=== PATIENT | male | born 1980 | race African-American/Black ===

== ENCOUNTER 2017-08-05 12:38 | Emergency (ER) | payer MEDICAID, OTHER ==
[~2017-08-05] VITALS: Ht 175.3 cm; Wt 63.0 kg
[~2017-08-05 12:38] MED LIST: B50 PO; FOLI-43 PO; HYDR2TAB4 PO; HYDR500C18 PO; OXYC60TA7 PO; TEMA30CA PO
[2017-08-05 13:18] VITALS: BP 129/70
== END 2017-08-05 17:10 | disposition left against medical advice (07) ==
LOC: ER 15:18
DX: D57.00 Hb-SS disease with crisis, unspecified (principal); Z53.21 Procedure and treatment not carried out due to patient leaving prior to being seen by health care provider

== ENCOUNTER 2017-08-31 11:30 | Inpatient (IN) | payer MEDICAID ==
[~2017-08-31] VITALS: Ht 175.3 cm; Wt 62.6 kg
[2017-08-31] MEDS ORDERED: SODIUM CHLORIDE 0.9% 1,000 ML IV ONE (11:53)
[2017-08-31] MEDS ORDERED: ONDANSETRON HCL 4MG/2ML VIAL IV ONE (12:00)
[2017-08-31] MEDS ORDERED: MORPHINE SULFATE 4 MG/ML CPJ (NOT FOR IM USE) IV ONE (12:00)
[2017-08-31] MEDS ORDERED: DIPHENHYDRAMINE 50MG/ML VIAL IV ONE (12:45)
[2017-08-31 12:50] LABS: BASOPHILS % 1.1 % (0.0-2.0); EOSINOPHILS % 6.1 % (0.0-5.0); HEMATOCRIT. 21.7 % (42.0-52.0); HEMOGLOBIN. 7.8 g/dL (14.0-18.0); LYMPHOCYTES % 21.6 % (20.0-50.0); MEAN CORPUSCULAR HEMOGLOBIN 35.6 pg (28.0-32.0); MEAN CORPUSCULAR VOLUME 99.5 fL (80.0-94.0); MEAN PLATELET VOLUME 8.9 fl (7.4-10.4); MONOCYTES % 11.2 % (2.0-8.0); PLATELET 379 x1000/uL (130-400); RED BLOOD CELL COUNT 2.18 mill/uL (4.7-6.1); RED CELL DISTRIBUTION WIDTH 21.3 % (11.6-14.6)
[2017-08-31 13:02] LABS: CLARITY URINE CLEAR (CLEAR); COLOR URINE YELLOW (YELLOW); GLUCOSE URINE NEGATIVE (NEGATIVE); KETONES URINE NEGATIVE (NEGATIVE); LEUKOCYTE ESTERASE URINE NEGATIVE (NEGATIVE); NITRITE URINE NEGATIVE (NEGATIVE); OCCULT BLOOD URINE NEGATIVE (NEGATIVE); PH URINE 6.5 (4.5-8.0); PROTEIN URINE NEGATIVE (NEGATIVE); SPECIFIC GRAVITY URINE 1.013 (1.005-1.030)
[2017-08-31 13:07] LABS: INR 1.1; PROTHROMBIN TIME 11.8 sec (9.4-11.6)
[2017-08-31 13:08] LABS: CARBON DIOXIDE 25 mEq/L (21-32); CHLORIDE 112 mEq/L (98-107); ETHANOL BLOOD < 10 mg/dL; TROPONIN I < 0.02 ng/mL (0.00-0.04)
[2017-08-31 13:34] LABS: *AMPHETAMINES SCREEN URINE NEGATIVE (NEGATIVE); *BARBITURATES SCREEN URINE NEGATIVE (NEGATIVE); *BENZODIAZEPINES SCREEN URINE NEGATIVE (NEGATIVE); *COCAINE SCREEN URINE NEGATIVE (NEGATIVE); CANNABINOID URINE SCREEN PRESUMTIVE POSITIVE (NEGATIVE); METHADONE URINE SCREEN NEGATIVE (NEGATIVE); OPIATES URINE SCREEN PRESUMTIVE POSITIVE (NEGATIVE); PHENCYCLIDINE URINE SCREEN NEGATIVE (NEGATIVE)
[2017-08-31] MEDS ORDERED: HYDROMORPHONE HCL/PF 2MG/ML CPJ IV ONE (15:00)
[2017-08-31 17:27] VITALS: BP 104/50
[2017-08-31] MEDS ORDERED: CHOL100046 PO (17:42)
[2017-08-31] MEDS ORDERED: ALPR1TAB PO (17:43)
[2017-08-31] MEDS ORDERED: ALBU18HF2 IH (17:44)
[2017-08-31 18:00] VITALS: BP 104/50
[2017-08-31] MEDS: SODIUM CHLORIDE 0.9% 1,000 ML IV SCH (18:56)
[2017-08-31] MEDS: HYDROMORPHONE HCL/PF 2MG/ML CPJ IV PRN ×2 (18:58→23:06)
[2017-08-31] MEDS: DIPHENHYDRAMINE 50MG/ML VIAL IV PRN ×2 (19:12→23:24)
[2017-08-31 20:00] VITALS: BP 132/66
[2017-09-01] VITALS: BP 112/64
[2017-09-01] MEDS: HYDROMORPHONE HCL/PF 2MG/ML CPJ IV PRN ×9 (01:23→21:44)
[2017-09-01] MEDS: TEMAZEPAM 15MG CAPSULE PO PRN (02:12)
[2017-09-01] MEDS: DIPHENHYDRAMINE 50MG/ML VIAL IV PRN ×5 (03:32→21:43)
[2017-09-01 04:00] VITALS: BP 102/59
[2017-09-01] MEDS: SODIUM CHLORIDE 0.9% 1,000 ML IV SCH ×2 (05:18→15:40)
[2017-09-01 07:03] LABS: BASOPHILS % 1.4 % (0.0-2.0); LYMPHOCYTES % 27.3 % (20.0-50.0); MEAN CORPUSCULAR HEMOGLOBIN 35.2 pg (28.0-32.0); MEAN CORPUSCULAR VOLUME 100.6 fL (80.0-94.0); MEAN PLATELET VOLUME 9.3 fl (7.4-10.4); MONOCYTES % 12.6 % (2.0-8.0); NEUTROPHILS % 50.7 % (40.0-76.0); PLATELET 338 x1000/uL (130-400); RED BLOOD CELL COUNT 1.98 mill/uL (4.7-6.1); RED CELL DISTRIBUTION WIDTH 19.9 % (11.6-14.6)
[2017-09-01 07:09] LABS: HEMATOCRIT. 19.9 % (42.0-52.0)
[2017-09-01 07:57] LABS: CARBON DIOXIDE 25 mEq/L (21-32); CHLORIDE 110 mEq/L (98-107); CREATINE KINASE 49 IU/L (39-308); CREATINE KINASE MB FRACTION < 0.5 ng/mL (0.5-3.6); TROPONIN I < 0.02 ng/mL (0.00-0.04)
[2017-09-01 08:00] VITALS: BP 104/55
[2017-09-01] MEDS: HYDROXYUREA 500MG CAPSULE PO SCH (08:13)
[2017-09-01] MEDS: FOLIC ACID 1MG TABLET PO SCH (08:13)
[2017-09-01] MEDS ORDERED: ALBUTEROL 6.7GM HFA INHALER ORI SCH (09:00)
[2017-09-01] MEDS: ONDANSETRON HCL 4MG/2ML VIAL IV PRN (10:32)
[2017-09-01 12:00] VITALS: BP 113/68
[2017-09-01] MEDS: ALBUTEROL (0.083%) 2.5MG/3ML NEB HHN SCH ×2 (14:42→20:39)
[2017-09-01 15:37] VITALS: BP 121/64
[2017-09-01 20:14] VITALS: BP 117/67
[2017-09-01] MEDS: CEFEPIME 1,000 MG in DEXTROSE 5% WATER 50 ML IV SCH (21:44)
[2017-09-02] VITALS (7 sets, daily range): BP systolic 113–138; BP diastolic 46–86
[2017-09-02] MEDS: ALBUTEROL (0.083%) 2.5MG/3ML NEB HHN SCH ×4 (00:51→20:45)
[2017-09-02] MEDS: HYDROMORPHONE HCL/PF 2MG/ML CPJ IV PRN ×9 (00:56→22:11)
[2017-09-02] MEDS: TEMAZEPAM 15MG CAPSULE PO PRN (00:56)
[2017-09-02] MEDS ORDERED: VANCOMYCIN 1 G PREMIX 200 ML IV NR (01:00)
[2017-09-02] MEDS: ONDANSETRON HCL 4MG/2ML VIAL IV PRN (01:17)
[2017-09-02] MEDS: DIPHENHYDRAMINE 50MG/ML VIAL IV PRN ×4 (03:05→20:04)
[2017-09-02] MEDS: SODIUM CHLORIDE 0.9% 1,000 ML IV SCH ×3 (05:34→19:30)
[2017-09-02 07:47] LABS: BASOPHILS % 0.7 % (0.0-2.0); EOSINOPHILS % 8.1 % (0.0-5.0); HEMOGLOBIN. 7.1 g/dL (14.0-18.0); LYMPHOCYTES % 34.3 % (20.0-50.0); MEAN CORPUSCULAR HEMOGLOBIN 35.4 pg (28.0-32.0); MEAN CORPUSCULAR VOLUME 100.6 fL (80.0-94.0); MEAN PLATELET VOLUME 9.6 fl (7.4-10.4); MONOCYTES % 13.9 % (2.0-8.0); PLATELET 298 x1000/uL (130-400); RED CELL DISTRIBUTION WIDTH 19.2 % (11.6-14.6)
[2017-09-02 07:56] LABS: HEMATOCRIT. 20.2 % (42.0-52.0)
[2017-09-02] MEDS: CEFEPIME 1,000 MG in DEXTROSE 5% WATER 50 ML IV SCH ×2 (08:15→21:41)
[2017-09-02] MEDS: FOLIC ACID 1MG TABLET PO SCH (08:15)
[2017-09-02] MEDS: ALPRAZOLAM 0.5 MG TABLET PO PRN ×2 (08:15→22:05)
[2017-09-02] MEDS: HYDROXYUREA 500MG CAPSULE PO SCH (08:15)
[2017-09-02 08:21] LABS: CARBON DIOXIDE 25 mEq/L (21-32); CHLORIDE 112 mEq/L (98-107)
[2017-09-02 08:24] LABS: TOTAL IRON BINDING CAPACITY 161 ug/dL (250-450)
[2017-09-02] MEDS: VANCOMYCIN 1250MG in DEXTROSE 5% WATER 250ML IV SCH ×2 (10:23→18:34)
[2017-09-03] VITALS (9 sets, daily range): BP systolic 110–135; BP diastolic 48–82
[2017-09-03] MEDS: TEMAZEPAM 15MG CAPSULE PO PRN ×2 (00:04→23:58)
[2017-09-03] MEDS: DIPHENHYDRAMINE 50MG/ML VIAL IV PRN ×5 (00:14→22:31)
[2017-09-03] MEDS: HYDROMORPHONE HCL/PF 2MG/ML CPJ IV PRN ×8 (00:18→22:32)
[2017-09-03] MEDS: ALBUTEROL (0.083%) 2.5MG/3ML NEB HHN SCH ×4 (02:14→20:22)
[2017-09-03] MEDS: VANCOMYCIN 1250MG in DEXTROSE 5% WATER 250ML IV SCH ×3 (03:38→21:13)
[2017-09-03 07:09] LABS: CARBON DIOXIDE 26 mEq/L (21-32); CHLORIDE 111 mEq/L (98-107)
[2017-09-03 07:33] LABS: BASOPHILS % 0.9 % (0.0-2.0); EOSINOPHILS % 8.9 % (0.0-5.0); LYMPHOCYTES % 32.4 % (20.0-50.0); MEAN CORPUSCULAR HEMOGLOBIN 34.5 pg (28.0-32.0); MEAN CORPUSCULAR VOLUME 99.6 fL (80.0-94.0); MEAN PLATELET VOLUME 9.3 fl (7.4-10.4); MONOCYTES % 14.5 % (2.0-8.0); NEUTROPHILS % 43.3 % (40.0-76.0); PLATELET 292 x1000/uL (130-400); RED BLOOD CELL COUNT 1.98 mill/uL (4.7-6.1); RED CELL DISTRIBUTION WIDTH 19.5 % (11.6-14.6)
[2017-09-03 07:58] LABS: HEMOGLOBIN. 6.8 g/dL (14.0-18.0)
[2017-09-03 07:59] LABS: HEMATOCRIT. 19.7 % (42.0-52.0)
[2017-09-03] MEDS: FOLIC ACID 1MG TABLET PO SCH (08:40)
[2017-09-03] MEDS: CEFEPIME 1,000 MG in DEXTROSE 5% WATER 50 ML IV SCH ×2 (08:41→20:18)
[2017-09-03] MEDS: HYDROXYUREA 500MG CAPSULE PO SCH (08:41)
[2017-09-03] MEDS ORDERED: DIPHENHYDRAMINE 50MG CAPSULE PO SCH (11:30)
[2017-09-03] MEDS ORDERED: DOCUSATE SODIUM 100MG CAPSULE PO SCH (11:30)
[2017-09-03] MEDS ORDERED: ACETAMINOPHEN 325MG TABLET PO SCH ×2 (11:30→23:15)
[2017-09-03] MEDS: ALPRAZOLAM 0.5 MG TABLET PO PRN (21:25)
[2017-09-04] VITALS (10 sets, daily range): BP systolic 111–149; BP diastolic 54–81
[2017-09-04] MEDS: ALBUTEROL (0.083%) 2.5MG/3ML NEB HHN SCH ×3 (02:15→14:22)
[2017-09-04] MEDS: DIPHENHYDRAMINE 50MG/ML VIAL IV PRN ×5 (02:34→21:22)
[2017-09-04] MEDS: HYDROMORPHONE HCL/PF 2MG/ML CPJ IV PRN ×8 (02:35→20:41)
[2017-09-04] MEDS: SODIUM CHLORIDE 0.9% 1,000 ML IV SCH ×2 (03:50→11:53)
[2017-09-04] MEDS: ONDANSETRON HCL 4MG/2ML VIAL IV PRN (06:56)
[2017-09-04 07:15] LABS: HEMATOCRIT 24.1 % (42.0-52.0); HEMOGLOBIN 8.6 g/dL (14.0-18.0)
[2017-09-04] MEDS: CEFEPIME 1,000 MG in DEXTROSE 5% WATER 50 ML IV SCH ×2 (08:16→20:41)
[2017-09-04] MEDS: HYDROXYUREA 500MG CAPSULE PO SCH (08:16)
[2017-09-04] MEDS: FOLIC ACID 1MG TABLET PO SCH (08:16)
[2017-09-04] MEDS: ALPRAZOLAM 0.5 MG TABLET PO PRN ×2 (08:19→18:26)
[2017-09-04] MEDS: VANCOMYCIN 1250MG in DEXTROSE 5% WATER 250ML IV SCH ×2 (09:19→21:22)
[2017-09-05] MEDS ORDERED: CHOLECALCIFEROL (D3) 1000 UNIT TABLET PO SCH (09:00)
== END 2017-09-04 23:30 | disposition home health service (06) | DRG 206 ==
LOC: ER 13:51 → EDBEDREQ 13:59 → ENRESERV 15:00 → 8WST 17:50
PROVIDERS: ADMIT Internal Medicine; ATTEND Internal Medicine
PROC: 30233N1 Transfusion of Nonautologous Red Blood Cells into Peripheral Vein, Percutaneous Approach (ICD-10-PCS; principal; 2017-09-03)
DX: T82.7XXA Infection and inflammatory reaction due to other cardiac and vascular devices, implants and grafts, initial encounter (principal); A41.89 Other specified sepsis; D57.00 Hb-SS disease with crisis, unspecified; F12.90 Cannabis use, unspecified, uncomplicated; J45.909 Unspecified asthma, uncomplicated; M47.9 Spondylosis, unspecified; W06.XXXA Fall from bed, initial encounter; Z88.8 Allergy status to other drugs, medicaments and biological substances; Z79.899 Other long term (current) drug therapy; Z79.1 Long term (current) use of non-steroidal anti-inflammatories (NSAID); Z90.49 Acquired absence of other specified parts of digestive tract
CPT/HCPCS: 36415; 71010; 72148; 80048; 80053; 80202; 80305; 81001; 82550; 82553; 82728; 83540; 83550; 83605; 83690; 84484; 85014; 85018; 85025; 85044; 85610; 86850; 86900; 86920; 87040; 87086; 93005; 94640; 94664; 96361; 96374; 96375; 97162; 99285; G0482; J0692; J1170; J1200; J2270; J2405; J3370; J7030; J7040; J7050; J7060; J7611; P9016

== ENCOUNTER 2017-09-10 19:59 | Inpatient (IN) | payer MEDICAID ==
[~2017-09-10] VITALS: Ht 160 cm; Wt 65.8 kg
[~2017-09-10 19:59] MED LIST changes: +ALBU18HF2 IH; +ALPR1TAB PO; +CHOL100046 PO
[2017-09-10] MEDS ORDERED: MORPHINE SULFATE 10 MG/ML CPJ IV ONE (22:15)
[2017-09-10] MEDS ORDERED: DIPHENHYDRAMINE 50MG/ML VIAL IV ONE (22:45)
[2017-09-10 23:04] LABS: MEAN CORPUSCULAR HEMOGLOBIN 34.6 pg (28.0-32.0); MEAN CORPUSCULAR VOLUME 97.4 fL (80.0-94.0); MEAN PLATELET VOLUME 8.4 fl (7.4-10.4); PLATELET 285 x1000/uL (130-400); RED BLOOD CELL COUNT 1.64 mill/uL (4.7-6.1); RED CELL DISTRIBUTION WIDTH 18.7 % (11.6-14.6)
[2017-09-10 23:07] LABS: HEMOGLOBIN. 5.7 g/dL (14.0-18.0)
[2017-09-10 23:09] LABS: CHLORIDE 111 mEq/L (98-107)
[2017-09-10 23:12] LABS: CARBON DIOXIDE 21 mEq/L (21-32)
[2017-09-10 23:18] LABS: PLATELET ESTIMATE NORMAL
[2017-09-11] VITALS (9 sets, daily range): BP systolic 100–134; BP diastolic 46–69
[2017-09-11] MEDS ORDERED: DIPHENHYDRAMINE 50MG CAPSULE PO PRN (02:00)
[2017-09-11] MEDS: HYDROMORPHONE HCL/PF 2MG/ML CPJ IV PRN ×7 (02:53→23:49)
[2017-09-11] MEDS ORDERED: DIPHENHYDRAMINE 50MG/ML VIAL IV PRN (05:15)
[2017-09-11] MEDS: DIPHENHYDRAMINE 50MG/ML VIAL IV PRN ×3 (10:40→21:12)
[2017-09-11] MEDS: SODIUM CHLORIDE 0.9% 1,000 ML IV SCH (16:22)
[2017-09-11 17:16] LABS: MEAN CORPUSCULAR HEMOGLOBIN 34.4 pg (28.0-32.0); MEAN CORPUSCULAR VOLUME 97.6 fL (80.0-94.0); PLATELET 297 x1000/uL (130-400); RED BLOOD CELL COUNT 1.99 mill/uL (4.7-6.1)
[2017-09-11 17:27] LABS: CLARITY URINE CLEAR (CLEAR); COLOR URINE YELLOW (YELLOW); GLUCOSE URINE NEGATIVE (NEGATIVE); KETONES URINE NEGATIVE (NEGATIVE); LEUKOCYTE ESTERASE URINE TRACE (NEGATIVE); NITRITE URINE NEGATIVE (NEGATIVE); OCCULT BLOOD URINE NEGATIVE (NEGATIVE); PROTEIN URINE NEGATIVE (NEGATIVE); SPECIFIC GRAVITY URINE 1.009 (1.005-1.030)
[2017-09-11 17:40] LABS: CARBON DIOXIDE 22 mEq/L (21-32); CHLORIDE 112 mEq/L (98-107); TOTAL IRON BINDING CAPACITY 179 ug/dL (250-450)
[2017-09-11 17:42] LABS: HEMOGLOBIN. 6.9 g/dL (14.0-18.0)
[2017-09-11 17:43] LABS: *AMPHETAMINES SCREEN URINE NEGATIVE (NEGATIVE); *BARBITURATES SCREEN URINE NEGATIVE (NEGATIVE); *BENZODIAZEPINES SCREEN URINE PRESUMTIVE POSITIVE (NEGATIVE); *COCAINE SCREEN URINE NEGATIVE (NEGATIVE); CANNABINOID URINE SCREEN PRESUMTIVE POSITIVE (NEGATIVE); METHADONE URINE SCREEN NEGATIVE (NEGATIVE); OPIATES URINE SCREEN PRESUMTIVE POSITIVE (NEGATIVE); PHENCYCLIDINE URINE SCREEN NEGATIVE (NEGATIVE)
[2017-09-11 17:43] LABS: HEMATOCRIT. 19.5 % (42.0-52.0)
[2017-09-11 17:47] LABS: HAPTOGLOBIN < 30 mg/dL (30-200)
[2017-09-11 17:53] LABS: CARCINO EMBRYONIC ANTIGEN 2.8 ng/ml
[2017-09-11 17:54] LABS: PLATELET ESTIMATE NORMAL
[2017-09-11] MEDS ORDERED: LEVOFLOXACIN 500MG PREMIX 100 ML IV SCH ×2 (18:00)
[2017-09-11] MEDS: LEVOFLOXACIN 500MG PREMIX 100 ML IV SCH (18:14)
[2017-09-11] MEDS: IPRATROPIUM/ALBUTEROL 0.5-3(2.5)MG/3ML NEB HHN SCH ×2 (20:10→20:21)
[2017-09-11] MEDS: ACETAMINOPHEN 325MG TABLET PO PRN (21:57)
[2017-09-11] MEDS: ONDANSETRON HCL 4MG/2ML VIAL IV PRN (23:40)
[2017-09-12] VITALS (12 sets, daily range): BP systolic 124–156; BP diastolic 65–86
[2017-09-12] MEDS: DIPHENHYDRAMINE 50MG/ML VIAL IV PRN ×6 (01:51→22:38)
[2017-09-12] MEDS: HYDROMORPHONE HCL/PF 2MG/ML CPJ IV PRN ×8 (01:52→22:40)
[2017-09-12] MEDS: ONDANSETRON HCL 4MG/2ML VIAL IV PRN (06:08)
[2017-09-12] MEDS: SODIUM CHLORIDE 0.9% 1,000 ML IV SCH (06:10)
[2017-09-12] MEDS: IPRATROPIUM/ALBUTEROL 0.5-3(2.5)MG/3ML NEB HHN SCH ×2 (08:58)
[2017-09-12 09:06] LABS: MEAN CORPUSCULAR HEMOGLOBIN 33.9 pg (28.0-32.0); MEAN PLATELET VOLUME 9.3 fl (7.4-10.4); PLATELET 289 x1000/uL (130-400); RED BLOOD CELL COUNT 1.88 mill/uL (4.7-6.1); RED CELL DISTRIBUTION WIDTH 16.9 % (11.6-14.6)
[2017-09-12] MEDS: ACETAMINOPHEN 325MG TABLET PO PRN ×2 (09:16→22:51)
[2017-09-12 09:24] LABS: HEMATOCRIT. 18.4 % (42.0-52.0); HEMOGLOBIN. 6.4 g/dL (14.0-18.0)
[2017-09-12] MEDS: PANTOPRAZOLE SODIUM 40 MG/VIAL IV SCH (13:52)
[2017-09-12 17:39] LABS: PLATELET ESTIMATE NORMAL
[2017-09-13] VITALS: BP 147/78
[2017-09-13] MEDS: SODIUM CHLORIDE 0.9% 1,000 ML IV SCH ×3 (00:30→22:24)
[2017-09-13] MEDS: HYDROMORPHONE HCL/PF 2MG/ML CPJ IV PRN ×7 (00:39→22:26)
[2017-09-13] MEDS: IPRATROPIUM/ALBUTEROL 0.5-3(2.5)MG/3ML NEB HHN SCH ×3 (01:15→21:00)
[2017-09-13 08:00] VITALS: BP 134/63
[2017-09-13 09:30] LABS: HEMATOCRIT 22.9 % (42.0-52.0); HEMOGLOBIN 7.8 g/dL (14.0-18.0)
[2017-09-13] MEDS: DIPHENHYDRAMINE 50MG/ML VIAL IV PRN ×4 (10:16→22:25)
[2017-09-13] MEDS: PANTOPRAZOLE SODIUM 40 MG/VIAL IV SCH (10:16)
[2017-09-13 11:55] VITALS: BP 127/66
[2017-09-13 16:00] VITALS: BP 110/49
[2017-09-13] MEDS: LEVOFLOXACIN 500MG PREMIX 100 ML IV SCH (17:50)
[2017-09-13 20:00] VITALS: BP 126/77
[2017-09-14] VITALS (9 sets, daily range): BP systolic 135–155; BP diastolic 65–88
[2017-09-14] MEDS: IPRATROPIUM/ALBUTEROL 0.5-3(2.5)MG/3ML NEB HHN SCH ×6 (00:11→20:20)
[2017-09-14] MEDS: HYDROMORPHONE HCL/PF 2MG/ML CPJ IV PRN ×12 (00:27→23:19)
[2017-09-14] MEDS: DIPHENHYDRAMINE 50MG/ML VIAL IV PRN ×6 (02:28→23:17)
[2017-09-14 06:37] LABS: HEMATOCRIT. 21.6 % (42.0-52.0); HEMOGLOBIN. 7.3 g/dL (14.0-18.0); MEAN CORPUSCULAR HEMOGLOBIN 32.1 pg (28.0-32.0); MEAN CORPUSCULAR VOLUME 94.8 fL (80.0-94.0); MEAN PLATELET VOLUME 9.1 fl (7.4-10.4); PLATELET 298 x1000/uL (130-400); RED BLOOD CELL COUNT 2.27 mill/uL (4.7-6.1); RED CELL DISTRIBUTION WIDTH 17.2 % (11.6-14.6)
[2017-09-14] MEDS: SODIUM CHLORIDE 0.9% 1,000 ML IV SCH ×2 (06:48→08:59)
[2017-09-14] MEDS: PANTOPRAZOLE SODIUM 40 MG/VIAL IV SCH (08:57)
[2017-09-14 11:59] LABS: PLATELET ESTIMATE NORMAL
[2017-09-14 12:24] LABS: BG BASE EXCESS -3.2 mmol/L (-2.0-2.0); BG CARBOXYHEMOGLOBIN 1.2 % (0.5-1.5); BG DEOXYHEMOGLOBIN 4.9 % (0.0-5.0); BG HCO3 ACT 20.3 mmol/L (22.0-26.0); BG METHEMOGLOBIN 0.1 % (0.0-1.5); BG OXYHEMOGLOBIN 93.8 % (94.0-97.0); BG PCO2 30.3 mmHg (35.0-45.0); BG PH 7.444 (7.350-7.450); BG PO2 76.8 mmHg (75.0-100.0); BG SAMPLE SITE LEFT RADIAL; BG TOTAL HEMOGLOBIN 8.3 g/dL (12.0-18.0); BG VENT MODE NASAL CANNULA
[2017-09-14] MEDS: ACETAMINOPHEN 325MG TABLET PO PRN (13:11)
[2017-09-15] VITALS: BP 149/80
[2017-09-15] MEDS: HYDROMORPHONE HCL/PF 2MG/ML CPJ IV PRN ×11 (01:20→22:18)
[2017-09-15] MEDS: IPRATROPIUM/ALBUTEROL 0.5-3(2.5)MG/3ML NEB HHN SCH ×4 (03:16→20:08)
[2017-09-15] MEDS: DIPHENHYDRAMINE 50MG/ML VIAL IV PRN ×5 (03:29→20:15)
[2017-09-15 04:00] VITALS: BP 132/72
[2017-09-15 08:08] VITALS: BP 142/68
[2017-09-15 08:56] LABS: HEMATOCRIT. 21.8 % (42.0-52.0); HEMOGLOBIN. 7.4 g/dL (14.0-18.0); MEAN CORPUSCULAR HEMOGLOBIN 32.5 pg (28.0-32.0); MEAN CORPUSCULAR VOLUME 95.4 fL (80.0-94.0); MEAN PLATELET VOLUME 9.3 fl (7.4-10.4); PLATELET 329 x1000/uL (130-400); RED BLOOD CELL COUNT 2.29 mill/uL (4.7-6.1); RED CELL DISTRIBUTION WIDTH 16.8 % (11.6-14.6)
[2017-09-15] MEDS: PANTOPRAZOLE SODIUM 40 MG/VIAL IV SCH (09:36)
[2017-09-15] MEDS: LEVOFLOXACIN 500MG PREMIX 100 ML IV SCH (17:49)
[2017-09-15 20:00] VITALS: BP 155/65
[2017-09-15 22:15] VITALS: BP 157/75
[2017-09-15 22:51] LABS: PLATELET ESTIMATE NORMAL
[2017-09-16] VITALS (8 sets, daily range): BP systolic 124–154; BP diastolic 67–86
[2017-09-16] MEDS: HYDROMORPHONE HCL/PF 2MG/ML CPJ IV PRN ×10 (00:21→22:21)
[2017-09-16] MEDS: DIPHENHYDRAMINE 50MG/ML VIAL IV PRN ×5 (00:21→20:05)
[2017-09-16] MEDS: IPRATROPIUM/ALBUTEROL 0.5-3(2.5)MG/3ML NEB HHN SCH ×4 (02:44→21:41)
[2017-09-16 08:07] LABS: HEMATOCRIT. 22.7 % (42.0-52.0); HEMOGLOBIN. 7.8 g/dL (14.0-18.0); MEAN CORPUSCULAR HEMOGLOBIN 33.2 pg (28.0-32.0); MEAN CORPUSCULAR VOLUME 96.1 fL (80.0-94.0); MEAN PLATELET VOLUME 9.2 fl (7.4-10.4); PLATELET 361 x1000/uL (130-400); RED BLOOD CELL COUNT 2.36 mill/uL (4.7-6.1); RED CELL DISTRIBUTION WIDTH 16.6 % (11.6-14.6)
[2017-09-16] MEDS: FAMOTIDINE 20MG TABLET PO SCH (08:34)
[2017-09-16] MEDS ORDERED: METHYLPREDNISOLONE SOD SUCC 125 MG/2 ML VIAL IV NR (14:21)
[2017-09-16 14:22] LABS: PLATELET ESTIMATE NORMAL
[2017-09-16] MEDS: HYDROCORTISONE 2.5% OINT 20GM TOP SCH (17:51)
[2017-09-16] MEDS: METHYLPREDNISOLONE SOD SUCC 40 MG/ML VIAL IV SCH (22:20)
[2017-09-17] VITALS: BP 140/62
[2017-09-17] MEDS: HYDROMORPHONE HCL/PF 2MG/ML CPJ IV PRN ×7 (00:31→19:46)
[2017-09-17] MEDS: DIPHENHYDRAMINE 50MG/ML VIAL IV PRN ×5 (00:31→19:46)
[2017-09-17] MEDS: IPRATROPIUM/ALBUTEROL 0.5-3(2.5)MG/3ML NEB HHN SCH ×4 (01:38→20:12)
[2017-09-17 02:38] VITALS: BP 125/70
[2017-09-17 04:00] VITALS: BP 139/71
[2017-09-17] MEDS: METHYLPREDNISOLONE SOD SUCC 40 MG/ML VIAL IV SCH ×3 (06:54→21:33)
[2017-09-17 08:00] VITALS: BP 143/62
[2017-09-17 08:00] LABS: BASOPHILS % 0.2 % (0.0-2.0); HEMATOCRIT. 22.7 % (42.0-52.0); HEMOGLOBIN. 7.9 g/dL (14.0-18.0); LYMPHOCYTES % 7.9 % (20.0-50.0); MEAN CORPUSCULAR HEMOGLOBIN 32.9 pg (28.0-32.0); MEAN CORPUSCULAR VOLUME 94.9 fL (80.0-94.0); MONOCYTES % 3.8 % (2.0-8.0); NEUTROPHILS % 88.1 % (40.0-76.0); PLATELET 476 x1000/uL (130-400); RED BLOOD CELL COUNT 2.39 mill/uL (4.7-6.1); RED CELL DISTRIBUTION WIDTH 16.3 % (11.6-14.6)
[2017-09-17] MEDS: FAMOTIDINE 20MG TABLET PO SCH (08:21)
[2017-09-17] MEDS: HYDROCORTISONE 2.5% OINT 20GM TOP SCH ×2 (08:33→18:31)
[2017-09-17] MEDS ORDERED: ALPRAZOLAM 0.25 MG TABLET PO SCH (09:00)
[2017-09-17] MEDS ORDERED: LORAZEPAM 2MG/ML CPJ IV SCH (09:15)
[2017-09-17] MEDS ORDERED: LEVOFLOXACIN 500MG TABLET PO SCH (13:00)
[2017-09-17 16:00] VITALS: BP 131/65
[2017-09-17 20:00] VITALS: BP 180/75
[2017-09-18] VITALS: BP 151/81
[2017-09-18] MEDS: HYDROMORPHONE HCL/PF 2MG/ML CPJ IV PRN ×5 (00:06→16:47)
[2017-09-18] MEDS: DIPHENHYDRAMINE 50MG/ML VIAL IV PRN ×5 (00:06→16:47)
[2017-09-18 04:00] VITALS: BP 118/58
[2017-09-18] MEDS: IPRATROPIUM/ALBUTEROL 0.5-3(2.5)MG/3ML NEB HHN SCH ×2 (04:04→08:48)
[2017-09-18] MEDS: METHYLPREDNISOLONE SOD SUCC 40 MG/ML VIAL IV SCH ×2 (05:00→13:10)
[2017-09-18 08:10] VITALS: BP 168/63
[2017-09-18] MEDS: HYDROCORTISONE 2.5% OINT 20GM TOP SCH ×2 (08:44→16:48)
[2017-09-18] MEDS: FAMOTIDINE 20MG TABLET PO SCH (08:44)
[2017-09-18] MEDS ORDERED: FOLIC ACID 1MG TABLET PO SCH (09:00)
[2017-09-18 09:04] LABS: HEMATOCRIT. 23.6 % (42.0-52.0); HEMOGLOBIN. 8.1 g/dL (14.0-18.0); MEAN CORPUSCULAR VOLUME 95.8 fL (80.0-94.0); MEAN PLATELET VOLUME 8.2 fl (7.4-10.4); PLATELET 535 x1000/uL (130-400); RED BLOOD CELL COUNT 2.47 mill/uL (4.7-6.1)
[2017-09-18 12:00] VITALS: BP 122/57
[2017-09-18 16:00] VITALS: BP 164/73
[2017-09-18 16:54] VITALS: BP 145/80
[2017-09-18 18:09] LABS: PLATELET ESTIMATE MARKEDLY INCREASED
== END 2017-09-18 19:00 | disposition home or self-care (01) | DRG 720 ==
LOC: ER 19:59 → 6WST 23:18 → ENRESERV 23:33
PROVIDERS: ADMIT Internal Medicine; ATTEND Internal Medicine
PROC: 30233N1 Transfusion of Nonautologous Red Blood Cells into Peripheral Vein, Percutaneous Approach (ICD-10-PCS; principal; 2017-09-11)
DX: A41.9 Sepsis, unspecified organism (principal); N17.0 Acute kidney failure with tubular necrosis; D57.00 Hb-SS disease with crisis, unspecified; E87.2 Acidosis; J18.9 Pneumonia, unspecified organism; J45.901 Unspecified asthma with (acute) exacerbation; R16.0 Hepatomegaly, not elsewhere classified; K52.9 Noninfective gastroenteritis and colitis, unspecified; E80.6 Other disorders of bilirubin metabolism; M19.90 Unspecified osteoarthritis, unspecified site; G89.4 Chronic pain syndrome; N18.9 Chronic kidney disease, unspecified; Z86.73 Personal history of transient ischemic attack (TIA), and cerebral infarction without residual deficits; Z90.49 Acquired absence of other specified parts of digestive tract; Z79.899 Other long term (current) drug therapy; Z88.8 Allergy status to other drugs, medicaments and biological substances
CPT/HCPCS: 36415; 36600; 71010; 74176; 74181; 76705; 76770; 80048; 80053; 80076; 80305; 81001; 82248; 82270; 82375; 82378; 82607; 82668; 82728; 82805; 83010; 83540; 83550; 83615; 84145; 84443; 85014; 85018; 85025; 85379; 85651; 86140; 86850; 86900; 86920; 87015; 87040; 87045; 87086; 87427; 87449; 87493; 89055; 93970; 94003; 94640; 94664; 96374; 96375; 99291; C9113; J1170; J1200; J1956; J2060; J2270; J2405; J2920; J2930; J7030; J7050; J7620; P9016

== ENCOUNTER 2018-03-09 09:52 | Emergency (ER) | payer MEDICAID ==
[~2018-03-09] VITALS: Ht 160 cm; Wt 62.0 kg
[2018-03-09 11:24] LABS: CLARITY URINE CLEAR (CLEAR); COLOR URINE DARK YELLOW (YELLOW); KETONES URINE NEGATIVE (NEGATIVE); LEUKOCYTE ESTERASE URINE TRACE (NEGATIVE); NITRITE URINE NEGATIVE (NEGATIVE); OCCULT BLOOD URINE 2+ (NEGATIVE); PH URINE 5.5 (4.5-8.0); PROTEIN URINE 2+ (NEGATIVE); SPECIFIC GRAVITY URINE 1.015 (1.005-1.030)
[2018-03-09] MEDS ORDERED: SODIUM CHLORIDE 0.9% 1,000 ML IV ONE (11:40)
[2018-03-09] MEDS ORDERED: HYDROCODONE/ACETAMINOPHEN 5/325MG TABLET PO ONE (11:45)
[2018-03-09 12:07] LABS: CHLORIDE 118 mEq/L (98-107)
[2018-03-09 12:08] LABS: INR 1.1; PROTHROMBIN TIME 11.4 sec (9.4-11.6)
[2018-03-09 12:26] LABS: EOSINOPHILS % 3.6 % (0.0-5.0); HEMATOCRIT. 21.2 % (42.0-52.0); LYMPHOCYTES % 24.8 % (20.0-50.0); MEAN CORPUSCULAR HEMOGLOBIN 35.4 pg (28.0-32.0); MEAN CORPUSCULAR VOLUME 98.8 fL (80.0-94.0); MEAN PLATELET VOLUME 8.6 fl (7.4-10.4); MONOCYTES % 11.2 % (2.0-8.0); NEUTROPHILS % 59.4 % (40.0-76.0); PLATELET 375 x1000/uL (130-400); RED BLOOD CELL COUNT 2.15 mill/uL (4.7-6.1); RED CELL DISTRIBUTION WIDTH 23.1 % (11.6-14.6)
[2018-03-09 12:29] LABS: HEMOGLOBIN. 7.6 g/dL (14.0-18.0)
[2018-03-09] MEDS ORDERED: MORPHINE SULFATE 4 MG/ML CPJ (NOT FOR IM USE) IV STA ×2 (12:42→16:37)
[2018-03-09] MEDS ORDERED: ONDANSETRON HCL 4MG/2ML VIAL IV STA ×2 (12:42→16:37)
[2018-03-09] MEDS ORDERED: DIPHENHYDRAMINE 50MG/ML VIAL IV ONE ×2 (12:45→17:30)
[2018-03-09 13:02] LABS: PLATELET ESTIMATE NORMAL
[2018-03-09] MEDS ORDERED: CEFTRIAXONE 1 G PREMIX 50 ML IV ONE (13:30)
[2018-03-09] MEDS ORDERED: LORAZEPAM 2MG/ML CPJ IV ONE (16:30)
[2018-03-09] MEDS ORDERED: HALOPERIDOL LACTATE 5MG/ML VIAL IM ONE (16:30)
[2018-03-09 18:42] VITALS: BP 148/70
== END 2018-03-09 18:28 | disposition home or self-care (01) ==
LOC: ER 10:03
DX: D57.00 Hb-SS disease with crisis, unspecified (principal); I51.7 Cardiomegaly; J45.909 Unspecified asthma, uncomplicated; Z88.6 Allergy status to analgesic agent; I27.0 Primary pulmonary hypertension; Z90.49 Acquired absence of other specified parts of digestive tract; Z86.73 Personal history of transient ischemic attack (TIA), and cerebral infarction without residual deficits
CPT/HCPCS: 36415; 71045; 80053; 81003; 82962; 85025; 85044; 85610; 96361; 96365; 96375; 96376; 99285; J0696; J1200; J2270; J2405; J7030; Z7610